=== PATIENT | female | born 1985 | race Caucasian/White ===

== ENCOUNTER 2017-06-09 09:11 | Inpatient (IN) | payer OTHER ==
[2017-06-09] VITALS (16 sets, daily range): BP systolic 105–136; BP diastolic 56–69
[~2017-06-09] VITALS: Ht 157.5 cm; Wt 87.9 kg
[2017-06-09 10:25] LABS: BASOPHIL (%) 0.3 % (0-1); BASOPHIL COUNT 0.1 K/uL (0-0.1); EOSINOPHIL (%) 0.1 % (0-5); HEMATOCRIT 41.3 % (36.0-46.0); IMMATURE GRANULOCYTE (%) 1.5 % (0.0-0.7); LYMPHOCYTE (%) 7.2 % (15-42); LYMPHOCYTE COUNT 1.2 K/uL (1.0-2.8); MCH 30.4 PG (29.0-34.0); MCHC 33.9 G/DL (30.0-36.0); MCV 89.8 FL (83-99); MONOCYTE (%) 5.4 % (3-12); MONOCYTE COUNT 0.9 K/uL (0-0.8); NEUTROPHIL (%) 85.5 % (45-76); NEUTROPHIL COUNT 13.7 K/uL (1.8-6.4); PLATELET COUNT 148 K/uL (156-360); RBC DIS.WIDTH-CV 14.1 % (11.8-14.6); RBC DIS.WIDTH-SD 45.1 % (39-53)
[2017-06-10] VITALS (12 sets, daily range): BP systolic 105–121; BP diastolic 55–60
[2017-06-10] MEDS ORDERED: MOTRIN800 MG PO (05:35)
[2017-06-11 08:02] VITALS: BP 118/67
[2017-06-11 15:51] VITALS: BP 105/59
[2017-06-12 07:20] VITALS: BP 130/77
[2017-06-12] MEDS ORDERED: BREAST PUMP MC (10:39)
== END 2017-06-12 14:56 | disposition home or self-care (01) | DRG 775 ==
LOC: LDRP-OP 09:11 → 2WEST 09:13
PROVIDERS: Nurse Practitioner
PROC: 3E0R3BZ Introduction of Anesthetic Agent into Spinal Canal, Percutaneous Approach (ICD-10-PCS; principal; 2017-06-10)
PROC: 00HU33Z Insertion of Infusion Device into Spinal Canal, Percutaneous Approach (ICD-10-PCS; principal; 2017-06-10)
PROC: 0HQ9XZZ Repair Perineum Skin, External Approach (ICD-10-PCS; principal; 2017-06-10)
PROC: 10E0XZZ Delivery of Products of Conception, External Approach (ICD-10-PCS; principal; 2017-06-10)
DX: O42.02 Full-term premature rupture of membranes, onset of labor within 24 hours of rupture (principal); O99.824 Streptococcus B carrier state complicating childbirth; O70.0 First degree perineal laceration during delivery; Z3A.38 38 weeks gestation of pregnancy; Z37.0 Single live birth
CPT/HCPCS: 85025; C1755; G0378; J0595; J2540; J3010; J7120